=== PATIENT | female | born 1995 | race Caucasian/White ===

== ENCOUNTER 2018-08-14 15:48 | Emergency (ER) | payer OTHER ==
[~2018-08-14] VITALS: Ht 167.6 cm; Wt 71.2 kg
--- NOTE | 2018-08-14 15:57 | NUR ---
PT BIBSELF FOR ABD PAIN RADIATING TO BACK SINCE 3PM TODAY; PT AAOX4, -SOB, NAD NOTED, PT TO BED 7, VSS, PENDING MD SHEA
[2018-08-14] MEDS ORDERED: ONDANSETRON HCL/PF 4 MG/2 ML VIAL IVP ONE (17:30)
[2018-08-14] MEDS ORDERED: MORPHINE SULFATE INJ 2 MG/ML DISP.SYRIN IV ONE (17:30)
[2018-08-14] MEDS ORDERED: IV NS 0.9% 1,000 ML BAG IV ONE (17:30)
[2018-08-14 17:36] LABS: APPEARANCE,URINE Clear (CLEAR); BILIRUBIN,URINE Negative (NEGATIVE); BLOOD, URINE Trace-lysed Ery/uL (NEGATIVE); COLOR,URINE Yellow (YELLOW); KETONES,URINE Negative (NEGATIVE); LEUKOCYTE ESTERASE ,URINE Negative (NEGATIVE); NITRITE, URINE Negative (NEGATIVE); PH,URINE 6.5 (5.0-8.0); PROTEIN,URINE Negative (NEGATIVE); UGLUCOSE Negative (NEGATIVE); UROBILINOGEN,URINE 0.2 EU/dL (0.2)
[2018-08-14 17:36] LABS: BASOPHILS # (AUTO) 0.1 /CMM (0.0-0.2); BASOPHILS % (AUTO) 0.5 % (0.0-2.0); EOSINOPHILS % (AUTO) 0.2 % (0.0-6.0); HEMATOCRIT 45 % (33-45); HEMOGLOBIN 15.1 g/dL (11.5-14.8); LYMPHOCYTES # (AUTO) 1.6 /CMM (0.8-4.8); MEAN CORPUSCULAR HGB CONC 34 g/dl (31.0-36.0); MEAN CORPUSCULAR VOLUME 88 fL (82-100); MONOCYTES # (AUTO) 1.1 /CMM (0.1-1.30); MONOCYTES % (AUTO) 5.1 % (2.0-12.0); NEUTROPHILS # (AUTO) 17.7 /CMM (1.8-8.9); NEUTROPHILS % (AUTO) 86.2 % (43.0-81.0); PLATELET COUNT (AUTO) 332 /CMM (150-450); RED BLOOD CELL COUNT(AUTO) 5.11 MIL/uL (4.0-5.2); WHITE BLOOD COUNT (AUTO) 20.5 K/uL (4.3-11.0)
[2018-08-14 17:43] LABS: CALCIUM, SERUM 9.4 mg/dL (8.5-10.1); CREATININE 0.9 mg/dL (0.6-1.3); POTASSIUM 3.6 mmol/L (3.5-5.1)
[2018-08-14 17:44] LABS: BACTERIA,URINE None seen /HPF (None Seen); SQUAMOUS EPITHELIAL CELL,UR Few /HPF (None Seen); WBC,URINE 0-2 /HPF (0-3)
[2018-08-14 17:49] LABS: ALBUMIN 4.3 g/dL (3.4-5.0); BILIRUBIN,DIRECT 0.1 mg/dL (0.0-0.2); BILIRUBIN,TOTAL 0.3 mg/dL (0.2-1.0); TOTAL PROTEIN, SERUM 8.2 g/dL (6.4-8.2)
[2018-08-14] MEDS ORDERED: ONDANSETRON HCL/PF 4 MG/2 ML VIAL ONE ×2 (17:52→22:16)
[2018-08-14] MEDS ORDERED: LORA10TA68 PO (18:32)
[2018-08-14] MEDS ORDERED: IV NS 0.9% 250 ML IV ONE (19:51)
[2018-08-14] MEDS ORDERED: CT SWABBABLE VALVE TRANS SET 1 EA INFUS.SET MC ONE (19:51)
[2018-08-14] MEDS ORDERED: IOHEXOL-300 100 ML VIAL IV ONE (19:51)
--- NOTE | 2018-08-14 20:12 | NUR ---
PT BROUGHT BY RADIOLOGY TO CT
[2018-08-14] MEDS ORDERED: PIPERACILLIN /TAZOBACTAM 3.375 G VIAL IV ONE (21:29)
[2018-08-14] MEDS ORDERED: PIPERACILLIN /TAZOBACTAM 3.375 G in IV D5W 50 ML IV ONE (21:30)
[2018-08-14 21:49] VITALS: BP 129/65
--- NOTE | 2018-08-14 22:00 | NUR ---
pt does not wish to be admitted here in [facility] d/t insurance compication, harriet paul aware. will speak with pt
--- NOTE | 2018-08-14 22:14 | NUR ---
Patient does not wish to proceed with medical care recommended by [facility]. Patient given information related to possible complications, up to and including , which could occur as a result of leaving the hospital at this time. Patient verbalizes understanding of risks involved due to leaving against medical advice. Patient has signed AMA form.
[2018-08-14] MEDS ORDERED: HYDROMORPHONE 1 MG/1 ML DISP.SYRIN ONE (22:17)
[2018-08-14] MEDS ORDERED: ONDANSETRON HCL/PF - ER 4 MG/2 ML VIAL IV ONE (22:30)
[2018-08-14] MEDS ORDERED: HYDROMORPHONE INJ 0.5 MG/0.5 ML SYRINGE IV ONE (22:30)
== END 2018-08-14 23:05 | disposition left against medical advice (07) ==
LOC: ER 15:50
DX: K35.80 Unspecified acute appendicitis (principal); R10.31 Right lower quadrant pain; N83.202 Unspecified ovarian cyst, left side; D72.828 Other elevated white blood cell count; E87.1 Hypo-osmolality and hyponatremia; R42 Dizziness and giddiness; J45.909 Unspecified asthma, uncomplicated; Z60.2 Problems related to living alone
CPT/HCPCS: 36415; 74177; 76705; 76856; 80048; 80076; 81001; 84703; 85025; 96361; 96365; 96375; 99284; J2405; J2543; J7030 ×2; J7050; J7060; Q9967; 81000-TC; J1170

== ENCOUNTER 2020-01-26 14:58 | Emergency (ER) | payer OTHER ==
[~2020-01-26] VITALS: Ht 167.6 cm; Wt 76.2 kg
[~2020-01-26 14:58] MED LIST: LORA10TA68 PO
--- NOTE | 2020-01-26 15:28 | NUR ---
pt to ct
[2020-01-26] MEDS ORDERED: FENTANYL PF 100MCG/2ML AMPUL ONE (15:32)
[2020-01-26] MEDS: FENTANYL PF 100MCG/2ML AMPUL IV ONE (15:42)
--- NOTE | 2020-01-26 15:44 | NUR ---
BIBFRIEND FROM HOME TO ER CH1, AAOX4. NOT IN RESP DISTRESS, BREATHING EVEN AND UNLABORED. AMBULATORY. CAME IN FOR R SHOULDER PAIN S/P HOLDING ON THE STAIR RAIL WHILE FALLING. PT STATES THAT HER SHOULDER FEELS DISLOCATED FOR IT ALREADY HAPPENED BEFORE. PAIN IS 10/10. ROM IS LIMITED D/T PAIN. RIGHT RADIAL PULSE APPRECIATED. PT DENIES ANY HEAD TRAUMA. WAS AT THE BEDSIDE FOR EVAL. ORDERS RECEIVED, NOTED AND CARRIED OUT.
[2020-01-26] MEDS ORDERED: ONDANSETRON HCL/PF 4 MG/2 ML VIAL ONE (16:33)
[2020-01-26] MEDS ORDERED: MORPHINE SULFATE INJ 4 MG/ML DISP.SYRIN ONE (16:33)
[2020-01-26] MEDS: MORPHINE SULFATE INJ 2 MG/ML DISP.SYRIN IV ONE (16:37)
[2020-01-26] MEDS: ONDANSETRON HCL/PF 4 MG/2 ML VIAL IV ONE (16:37)
--- NOTE | 2020-01-26 16:42 | NUR ---
VERBAL ORDER RECEIVED TO GIVE MORPHINE 4MG IV X 1 DOSE AND ZOFRAN 4MG IV X 1 DOSE. NOTED AND CARRIED OUT
[2020-01-26 17:40] VITALS: BP 136/93
== END 2020-01-26 17:40 | disposition home or self-care (01) ==
LOC: ER 15:06
DX: M24.411 Recurrent dislocation, right shoulder (principal); J45.909 Unspecified asthma, uncomplicated; Z60.2 Problems related to living alone; Z79.899 Other long term (current) drug therapy
CPT/HCPCS: 23650; 73020; 73030; 96374; 96375; 99284; J2270; J2405; J3010